=== PATIENT | female | born 1985 | race Caucasian/White ===

== ENCOUNTER 2019-08-31 06:22 | Inpatient (IN) | payer BC ==
[~2019-08-31] VITALS: Ht 160 cm; Wt 71.8 kg
[2019-09-03] VITALS (51 sets, daily range): BP systolic 95–155; BP diastolic 51–89; PULSE 67–102; TEMP 97.6–99.3
--- NOTE | 2019-09-03 07:10 | NUR ---
Patient ambulatort to LR5 with spouse, changed into gown, FHR/TOCO monitors placed and explained. Patient denies any regular contractions/leaking of fluid/vaginal bleeding/decreased movement. Plan of care discussed and questions answered. 0730: IV started in left wrist per Molly MOJICA, blood obtained and to lab, LR infusing. Assessment completed/consents gone over and signed/ packet given. 0745: Plan of pitocin induction discussed and patient agrees. Pitocin started at 2mU per protocol. 0800: Patient off monitor to void. Dr. Tobin at bedside assessing patient and FHR strip. 0803: SVE:1-2/70/-2 and AROM at this time with clear fluid noted. Plan of care discussed.
[2019-09-03] MEDS ORDERED: PRENATAL MVI (07:28)
[2019-09-03 08:22] LABS: BASO % 0.4 % (0.0-2.0); EOS # 0.1 (0.0-0.7); EOS % 0.8 % (0-4.0); GRAN # 8.6 (1.4-6.5); GRAN % 78.4 % (42.2-75.2); HEMATOCRIT 40.8 % (37.0-47.0); HEMOGLOBIN 13.5 g/dl (12.5-16.0); LYMPH # 1.3 (1.2-3.4); LYMPH % 11.9 % (20.0-51.0); MEAN CELL VOLUME 91 fl (80.0-100.0); MEAN CORPUSCULAR HEMOGLOBIN 30 pg (27.0-31.0); MEAN CORPUSCULAR HGB CONC 33 g/dl (33.0-37.0); MEAN PLATELET VOLUME 12.3 fl (7.4-10.4); MONO # 0.9 (0.1-0.6); PLATELET COUNT 170 K/mm3 (130-400); REDCELL DISTRIBUTION WIDTH-CV 13.6 % (11.5-14.5)
--- NOTE | 2019-09-03 09:00 | NUR ---
Patient uncomfortable with contractions and breathing through each one. 1025: Patient requesting SVE. SVE-1-2/80/-2. Patient requests epidural and Maxi SANDS notified. LR bolus started. 1100: Patient sitting on edge of bed and MAXI SANDS at bedside for epidural. Patient breathing through contractions. Difficulty tracing FHR due to maternal position. 1113: Test dose given and patient tolerates well. Blood in catheter per Aimee Hammer CRNA and Epidural replaced 1123: Test dose given and patient tolerates well. 1130: Patient wedged left and plan of care discussed. Safety precautions gone over. 1200: FHR baseline 145-150bpm and recurrent late decelerations decreasing with each contraction. Patient wedged right. Patient right lateral with left leg resting in stirrup. 1300: Hardy catheter placed and patient tolerates well. SVE-5-6/90/-1 with bloody show. Patient left lateral with right leg resting in stirrup.
--- NOTE | 2019-09-03 13:45 | NUR ---
FHR baseline 145-150bpm and tracing recurrent late declelerations. Patient repositioned left lateral. 1400: FHR tracing subtle late/early declerations and repositined sitting up. 1450: Sublte late deceleration noted. 1500: SVE:7-8/90/-1 and patient right lateral with left leg resting in stirrup. Dr. Tobin updated and notified. 1615: FHR baseline 155bpm and recurrent sublte late decelerations noted. SVE-8/90/-1, pericare done and patient repositioned. 1623: FHR decreasing to 130bpm for approx 1 minutes and returning to baseline of 150-155bpm. Patient uncomfortable with contractions and turned wedged right. Patient pushes epidrual button. 1630: SVE-8/0 and Aimee Hammer CRNA notified that patient is uncomfortable. 1650: Aimee Hammer CRNA at bedside and assisting patient with pain. Patient wedged left. 1702: FHR baseline 145-150bpm and decreasing to 80-100bpm for approx. 6-7 minutes. 1704: Patient right lateral and pitocin off. LR bolus started. 1705: Oxygen via mask on patient at 10ml/hr and patient turned left lateral. 1708: FHR gradually increasing to 145-155bpm. 1713: Dr. Tobin called and updated on FHR strip. 1740: Oxygen off patient and turned right lateral. 1745: Pitocin turned back on at [address] Casper orders. 1750: FHR baseline increasing to 160-170bpm and subtle late decelerations noted. 1755: Patient repositioned left lateral and pericare done.
--- NOTE | 2019-09-03 18:30 | NUR ---
SVE by this RN. / with swelling of cervix on maternal left side and anterior lip. Pt repositioned to right lateral with left leg up in stirrup. Dr. Tobin notified, see physician notification.
--- NOTE | 2019-09-03 18:50 | NUR ---
Recurrent late decelerations with FHR baseline of 165 bpm and minimal variability. Pitocin off at this time.
--- NOTE | 2019-09-03 19:00 | NUR ---
Dr. Tobin at bedside. SVE complete and plus 1. Discussing options with patient for operative delivery due to tachycardia and minimal variability. 190 - FHR tracing with improved variability, will start pushing, no need for operative delivery at this time. 1919 - Dr. Tobin pushing with patient at perineum. Pt pushing well with contractions.
--- NOTE | 2019-09-03 19:44 | NUR ---
1934 - Dr. Tobin discussing use of vacuum at this time due to maternal fatigue and tachycardia. Pt agreeable at this time. Room set up for delivery. Nursery nurse at bedside. 1937 - Vacuum applied successfully to infant head. 1938 - Vacuum pressure pumped to green. Gentle traction applied to vacuum by Dr. Tobin during pushes. Pt pushing well with contractions. Pressure released after push. 1940 - Vacuum pressure pumped to green. Gentle traction applied to vacuum by Dr. Tobin during pushes. Pt pushing well. Pressure released after push. 1942 - Vacuum pressure pumped to green. Gentle traction applied to vacuum by Dr. Tobin during pushes. First pop off. Vacuum reapplied and pumped to green. 1943 - Delivery of viable boy. Cord clamped x [address] Tobin. Infant care assumed to Nursery RN, Juliana Viera. 1946 - Spontaneous delivery of intact placenta. Pitocin restarted at 333 mL/hr per protocol. Dez Hammer at bedside, epidural off. Fundal massage by this RN, firm and down 1 from umbilicus. Second degree perineal laceration repaired by Dr. Tobin. 1999 - Straight cath by Dr. Tobin, minimal urine out. Pericare provided. Clean chux beneath patient. Ice pack to perineum. Pt repositioned in bed for comfort. recovery started.
--- NOTE | 2019-09-03 20:30 | NUR ---
Pt requesting epidural catheter be removed at this time. Tip smooth, blue, and intact. Pt tolerated well.
[2019-09-04 03:10] VITALS: BP 130/72; PULSE 76; TEMP 97.8
[2019-09-04 07:50] VITALS: BP 121/80; PULSE 90; TEMP 97.2
[2019-09-04] MEDS ORDERED: MOTRIN 800800 MG/TAB PO (08:58)
[2019-09-04] MEDS ORDERED: PERCOCET 325 MG1 TA2 PO (08:59)
--- NOTE | 2019-09-04 09:49 | NUR ---
Initial visit; Mom thanked for offering congratulations and God's blessings for the of her son thanked family for choosing [facility].
[2019-09-04 15:55] VITALS: BP 122/79; PULSE 83; TEMP 97.6
[2019-09-04 18:45] VITALS: BP 107/57; PULSE 78; TEMP 97.8
[2019-09-05 08:23] VITALS: BP 104/68; PULSE 76; TEMP 98.1
== END 2019-09-05 12:35 | disposition home or self-care (01) | DRG 807 ==
LOC: LDR 09-03 06:22 → OB 09-03 22:15
PROVIDERS: ADMIT Obstetrics & Gynecology
PROC: 10D07Z6 Extraction of Products of Conception, Vacuum, Via Natural or Artificial Opening (ICD-10-PCS; principal; 2019-09-03)
PROC: 0KQM0ZZ Repair Perineum Muscle, Open Approach (ICD-10-PCS; 2019-09-03)
PROC: 10907ZC Drainage of Amniotic Fluid, Therapeutic from Products of Conception, Via Natural or Artificial Opening (ICD-10-PCS; 2019-09-03)
DX: O70.1 Second degree perineal laceration during delivery (principal); Z37.0 Single live birth; Z3A.39 39 weeks gestation of pregnancy; O75.81 Maternal exhaustion complicating labor and delivery
CPT/HCPCS: J2590; J7120

== ENCOUNTER → 2022-03-26 | Outpatient (CLI) | payer BC ==
[~2022-03-26] MED LIST: MOTRIN 800800 MG/TAB PO; PERCOCET 325 MG1 TA2 PO; PRENATAL MVI
== END ==
LOC: COL.RAD 15:29
DX: D48.5 Neoplasm of uncertain behavior of skin (principal)

== ENCOUNTER 2023-07-11 10:30 | Outpatient (RCR) | payer OTHER | END 2023-07-14 | disposition home or self-care (01) | LOC: WSST | DX: J39.2 Other diseases of pharynx (principal) ==

== ENCOUNTER 2024-02-10 08:00 | Outpatient (RCR) | payer OTHER | END 2024-02-12 | disposition home or self-care (01) | LOC: MKS.ESL.PT | DX: M25.572 Pain in left ankle and joints of left foot (principal) ==

== ENCOUNTER 2024-03-13 08:00 | Outpatient (RCR) | payer OTHER | END 2024-03-14 | disposition home or self-care (01) | LOC: MKS.ESL.PT | DX: M25.572 Pain in left ankle and joints of left foot (principal) ==